=== PATIENT | male | born 1940 | race Caucasian/White ===

== ENCOUNTER 2016-11-16 01:46 | Emergency (ER) | payer MEDICARE ==
[~2016-11-16] VITALS: Ht 188 cm; Wt 68.2 kg
--- NOTE | 2016-11-16 01:48 | ED.REPORT ---
HPI- Male Date of Service Nov 16, 2016 ED Provider: Dr. Vivek Jacobs M.D. A 76 year old male with a medical history including dementia and aphasia presents to the ED via EMS from [facility] with urinary retention onset 19 hours ago. The staff at his assisted living home attempted an in-and-out catheter with no relief. The patient presents moaning and nonverbal. His vital signs were normal en route. The history is limited due to patient's mental condition. Nursing Notes Stated Complaint: URINARY RETENTION Nursing Notes Reviewed: Yes General Time Seen by MD: 01:48 Transferred From: care home Chief Complaint Other (Urinary Retention) Hx Obtained From: EMS Unable to Obtain Hx: Patient condition, Mental status Arrived By: Ambulance Onset Occurred: 17 - 20 hours ago Symptom Duration: Since onset Associated with: Denies: Fever Pertinent Negative: Relieved by nothing Recent Healthcare: No recent doctor visit Past Medical History Past Medical History Dementia Arthritis Aphasia Past Surgical History None reported Smoking History Unknown if Ever Smoker Social History Other Social History: Good social support, Lives in [facility] Review of Systems Unable to Obtain ROS Patient condition, Mental status Physical Exam Physical Exam Notes: Initial Vital Signs Vital Signs (First) Date Time Temp Pulse Resp B/P Pulse Ox O2 Delivery O2 Flow Rate FiO2 11/16/16 02:04 36.4 67 14 105/51 94 Room Air Initial VS: Reviewed Head / Eyes: Atraumatic, Normocephalic ENT: Conjunctiva normal, No scleral icterus Respiratory: No respiratory distress Extremities: Vascular intact, Neuro intact, No swelling Skin: Warm, Dry General/Constitutional: No acute distress Completely demented and moaning Abdomen: Soft, Non-tender, No distention Mental Status: Positive: Unresponsive Interpretation & Diagnostics BLADDER SCAN: 197mL urine in bladder URINE DIPSTICK: Reagent Strip * Chemstrip 10 with SG Bedside Urine Specific [place] * 1.020 Bedside Urine pH * 5 Bedside Urine Leukocyte Esterase * Negative Bedside Urine Nitrite * Negative Bedside Urine Protein * Trace Bedside Urine Glucose * 50mg/dl Bedside Urine Ketones * Negative Bedside Urine Urobilinogen * Normal Bedside Urine Bilirubin * +++ Urine to Lab * Yes Lab Results Interpretation Test 11/16/16 02:50 Urine Color Dark yellow (YELLOW) Urine Appearance Clear (CLEAR,HAZY) Urine pH 5.0 (5.0-8.0) Urine Specific [place] 1.030 (1.003-1.035) Urine Protein Tracemg/dL (NEG,TRACE) Urine Glucose (UA) Negativemg/dL (NEGATIVE) Urine Ketones Tracemg/dL (NEGATIVE) Urine Occult Blood Moderate (NEGATIVE) Urine Nitrite Negative (NEGATIVE) Urine Bilirubin Small (NEGATIVE) Urine Ictotest Positive (Negative) Urine Urobilinogen Normalmg/dL (NORMAL) Urine Leukocyte Esterase Negative (NEGATIVE) Urine RBC >50/hpf (0-2) Urine WBC 6-10/hpf (0-5) Urine Epithelial Cells Few/hpf (NONE-MOD) Urine Crystals None seen (NONE SEEN) Urine Bacteria None/hpf (NONE-FEW) Urine Hyaline Casts None/lpf (NONE) Urine Granular Casts None seen (NONE SEEN) Urine Waxy Casts None seen (NONE SEEN) Urine Red Blood Cell Casts None seen (NONE SEEN) Urine White Blood Cell Casts None seen (NONE SEEN) Urine Mucus None seen (None Seen) Urine Trichomonas None seen (NONE SEEN) Urine Yeast None (NONE SEEN) Urine Culture Reflexed Indicated Re-Eval/Medical Decision Med Decision/Clinical Course 76-year-old presents with nineteen hours of no urination, and 200 mils of urine in his bladder. He actually has made some urine into his diaper here. He appears mildly dry. A Perez was placed and he was drained completely, and was left in place for the time being pending his return to half-way. They can decide if they wish to discontinue that. He does not appear to have any severe retention at this time, but at least they can monitor his urine output and very is oral intake accordingly. Discharged in stable condition. Culture of the urine is pending but it appears to be more bloody than infected after the Perez placement. Source of Hx: Old records Re-Evaluation/Progress : Time of Eval: 02:50 Patient Status: Condition improved Re-Evaluation/Progress Note: Patient rechecked. A Perez Catheter has been placed and urine drained. Will discharge patient back to assisted living facility. Discharge & Departure Shift Change Sign-Out Response to Therapy: Improved Impression: Primary Impression: Urinary retention Additional Impressions: Dementia Aphasia Disposition: Home Discharge Condition All VS Reviewed: Yes Condition: Improved Patient Instructions: How to Care for Your Perez Catheter (ED) Additional Instructions: Continue current medications. Consult the primary doctor for orders regarding continuation or discontinuation of the Perez catheter. There were 200 mL of urine in the bladder. This does not constitute acute retention, but he should be able to urinate that amount unless obstructed. Referrals: Renee Hubbard MD Attestation Portions of this note were transcribed by Allison Jeronimo. I, Dr. Jacobs, personally performed the history, physical exam, and medical decision-making; I reviewed and confirmed the accuracy of the information in the transcribed note. Signed by: Shanae Lozano, 11/16/2016, 03:35 copies to: Renee Hubbard MD, Christopher W MD Nov 16, 2016 01:48 ALLISON JERONIMO Nov 16, 2016 01:57
[2016-11-16 02:04] VITALS: BP 105/51; PULSE 67; RESP 14; O2SAT 94
[2016-11-16 03:09] LABS: APPEARANCE,URINE CLEAR (CLEAR,HAZY); COLOR,URINE DARK YELLOW (YELLOW); OCCULT BLOOD,URINE MODERATE (NEGATIVE); UROBILINOGEN,URINE NORMAL (NORMAL)
[2016-11-16 03:10] LABS: ICTOTEST,URINE POSITIVE (Negative)
[2016-11-16 03:27] VITALS: BP 95/53; PULSE 65; RESP 22; O2SAT 97
== END 2016-11-16 03:30 | disposition home or self-care (01) ==
LOC: EDBD 01:46 → SED 01:46
DX: R33.9 Retention of urine, unspecified (principal); F03.90 Unspecified dementia, unspecified severity, without behavioral disturbance, psychotic disturbance, mood disturbance, and anxiety; R47.01 Aphasia